=== PATIENT | male | born 1955 | race Caucasian/White ===

== ENCOUNTER 2016-11-25 10:19 | Emergency (ER) | payer OTHER ==
--- NOTE | 2016-11-25 10:39 | PDOC ---
History of Present Illness - General Chief Complaint: Redness To Affected Area Stated Complaint: LEFT HAND REDNESS Time Seen by Provider: 11/25/16 10:30 History Source: Patient, Old Records Exam Limitations: No Limitations - History of Present Illness Initial Comments: 11/25/16 10:49 61-year-old male with history of atrial fibrillation, hypothyroid disease and BPH who presents the emergency department with three-day history of painful lesions to his left upper extremity extending into his hand. The patient attributes these symptoms to a splinter that he got into his hand on Sunday. He denies fevers chills. All other review of systems are negative. The patient states that the lesions started out as red patchy areas then they get blisterlike lesions in clusters. Past History - Past Medical History Allergies/Adverse Reactions: Allergies Allergy/AdvReac Type Severity Reaction Status Date / Time No Known Allergies Allergy Verified 10/18/15 21:33 Home Medications: Ambulatory Orders Dofetilide [Tikosyn] 0.5 mcg PO DAILY #60 capsule 07/23/14 Cholecalciferol (Vitamin D3) [Vitamin D3 -] 2,000 unit PO BID 11/25/16 Gemfibrozil 1,200 mg PO DAILY 11/25/16 Magnesium 250 mg PO BID 11/25/16 Oxycodone HCl/Acetaminophen [Percocet 5-325 mg Tablet] 1 tab PO Q4H #15 tablet MDD 4 11/25/16 Terbinafine HCl [Lamisil] 250 mg PO DAILY 11/25/16 Valacyclovir HCl [Valtrex] 1,000 mg PO TID #21 tablet 11/25/16 Anemia: No Asthma: No Cancer: No Cardiac Disorders: Yes (A-FIB) CVA: No COPD: No CHF: No Dementia: No Diabetes: No GI Disorders: No Disorders: Yes (BPH) HTN: No Hypercholesterolemia: Yes Liver Disease: No Seizures: No Thyroid Disease: Yes (HYPOTHYROID) - Surgical History Abdominal Surgery: Yes (RIGHT INGUINAL HERNIA) Appendectomy: No Cardiac Surgery: Yes (CARDIAC ABLATION 01/08/15) Cholecystectomy: No Lung Surgery: No Neurologic Surgery: No Orthopedic Surgery: Yes (RIGHT ANKLE SURGERY) - Psycho/Social/Smoking Cessation Hx Anxiety: No Suicidal Ideation: No Smoking Status: No Smoking History: Never smoked Have you smoked in the past 12 months: No Number of Cigarettes Smoked Daily: 0 Hx Alcohol Use: Yes (RARE) Drug/Substance Use Hx: No Substance Use Type: None Hx Substance Use Treatment: No Review of Systems - Review of Systems Able to Perform ROS?: Yes Is the patient limited Luxembourgish proficient: No Constitutional: No: Symptoms Reported HEENTM: No: Symptoms Reported Respiratory: No: Symptoms reported, Hemoptysis ABD/GI: No: Symptoms Reported : No: Symptoms Reported Musculoskeletal: Yes: See HPI Integumentary: Yes: See HPI *Physical Exam - Physical Exam Comments: 11/25/16 10:50 GENERAL: Well developed, well nourished. Awake and alert. No acute distress. HEENT: Normocephalic, atraumatic. PERRLA, EOMI. No conjunctival pallor. Sclera are non- icteric. Moist mucous membranes. Oropharynx is clear. NECK: Supple. Full ROM. No JVD. No lymphadenopathy. CARDIOVASCULAR: Regular rate and rhythm. No murmurs, rubs, or gallops. Distal pulses are 2+ and symmetric. PULMONARY: No evidence of respiratory distress. Lungs clear to auscultation bilaterally. No wheezing, rales or rhonchi. ABDOMINAL: Soft. Non-tender. Non-distended. No rebound or guarding. No organomegaly. Normoactive bowel sounds. MUSCULOSKELETAL Normal range of motion at all joints. No bony deformities or tenderness. No CVA tenderness. EXTREMITIES: No cyanosis. No clubbing. No edema. No calf tenderness. SKIN: There are clusters of vesicles with an erythematous base on the midline of the chest and extending down the lateral aspect of the LUE and into the hand. The lesions do not cross midlin and are not on his back. NEUROLOGICAL: Alert, awake, appropriate. Cranial nerves 2-12 intact. Grossly non-focal exam. PSYCHIATRIC: Cooperative. Good eye contact. Appropriate mood and affect. Medical Decision Making - Medical Decision Making 11/25/16 10:51 61-year-old male with history of atrial fibrillation, hypothyroid disease and BPH who presents the emergency department with shingles to the left upper extremity. Plan: 1. I will start on antiviral medications valacyclovir 1000 mg 3 times a day for 7 days 2. Percocet for pain 3. Follow-up with primary care physician this weekDr. Outten who I have spoken to regarding this patient 4. Return to the emergency department if symptoms persist, worsen, or new symptoms arise. *DC/Admit/Observation/Transfer Diagnosis at time of Disposition: Shingles - Discharge Dispostion Disposition: HOME Condition at time of disposition: Stable Admit: No - Prescriptions Prescriptions: Oxycodone HCl/Acetaminophen [Percocet 5-325 mg Tablet] 1 tab PO Q4H #15 tablet MDD 4 Valacyclovir HCl [Valtrex] 1,000 mg PO TID #21 tablet - Patient Instructions Printed Discharge Instructions: DI for Shingles Additional Instructions: You are being treated for shingles which is a reactivation of the chickenpox virus. You're being given information on shingles as part of your discharge instructions. You're being treated with valacyclovir air which is an antiviral medication. The dosage of valacyclovir is a 1000 mgtake 1 tablet 3 times per day for one week. You also been prescribed Percocet which is a narcotic pain medication. You may take 1-2 tablets every 4-6 hours as needed for pain. Please follow-up with your primary care physician this week and return to the emergency department if your symptoms persist, worsen, or new symptoms arise.
[2016-11-25 10:46] VITALS: BP 124/80; PULSE 68; TEMP 98.2; BMI 30.4
== END 2016-11-25 11:02 | disposition home or self-care (01) ==
LOC: FER 10:19
DX: B02.9 Zoster without complications (principal); E03.9 Hypothyroidism, unspecified; N40.0 Benign prostatic hyperplasia without lower urinary tract symptoms; I48.91 Unspecified atrial fibrillation; E78.00 Pure hypercholesterolemia, unspecified
CPT/HCPCS: 99281-25

== ENCOUNTER 2017-12-24 09:38 | Day surgery (SDC) | payer OTHER ==
[2017-12-14 13:58] VITALS: BMI 31.4
[2017-12-24 10:14] VITALS: TEMP 98.2
[2017-12-24] MEDS ORDERED: PROPOFOL 20 ML ONE (10:22)
[2017-12-24] MEDS ORDERED: LIDOCAINE HCL/PF 2% SDV 5ML VIAL ONE (10:22)
[2017-12-24 12:28] VITALS: PULSE 55
[2017-12-24 12:55] VITALS: BP 135/80
--- NOTE | 2017-12-27 16:38 | PATH ---
Surgical Pathology Report Patient Name: JESI CARL [facility]. Rec. #: [id number] /Age/Gender: 1955 (Age: 62) / M Account: [id number] Location: [place] Pathology Taken: 12/24/2017 Received: 12/24/2017 Reported: 12/27/2017 Physicians: Loyd Fofana M.D. Specimen(s) Received A: DUODENUM B: ANTRUM C: POLYP FUNDUS D: LOWER ESOPHAGUS Clinical History GERD Postoperative diagnosis: Rule out celiac disease, gastric polyp, rule out Shah's esophagus, gastritis Final Diagnosis A. DUODENUM, BIOPSY: DUODENAL MUCOSA WITH NO PATHOLOGIC FINDINGS. Note: Features suggestive of celiac disease are not identified in this biopsy. B. ANTRUM, BIOPSY: MILD CHRONIC GASTRITIS. IMMUNOSTAIN IS NEGATIVE FOR H. PYLORI ORGANISMS. C. FUNDUS, POLYP, BIOPSY: GASTRIC XANTHOMA. IMMUNOSTAIN IS NEGATIVE FOR H. PYLORI ORGANISMS. D. LOWER ESOPHAGUS, BIOPSY: ESOPHAGOGASTRIC JUNCTIONAL (SQUAMOCOLUMNAR) AND COLUMNAR (GASTRIC CARDIA-TYPE) MUCOSA SHOWING INTESTINAL METAPLASIA, CONSISTENT WITH SHAH'S ESOPHAGUS IN THE APPROPRIATE ENDOSCOPIC SETTING; NEGATIVE FOR DYSPLASIA. SEVERE ACUTE AND CHRONIC ESOPHAGITIS; NUMEROUS FUNGAL ORGANISMS COMPATIBLE WITH SHARRON SPECIES ARE IDENTIFIED. Electronically Signed Carole Whalen M.D. Gross Description A. Received in formalin, labeled "duodenum" are 2 alfonso, irregular portions of soft tissue measuring 0.2 cm. in greatest dimension. The specimens are submitted in toto in one cassette. B. Received in formalin, labeled "antrum" are 2 alfonso, irregular portions of soft tissue measuring 0.2 and 0.4 cm. in greatest dimension. The specimens are submitted in toto in one cassette. C. Received in formalin, labeled "fundic polyp" is a alfonso, irregular portion of soft tissue measuring 0.3 cm. in greatest dimension. The specimen is submitted in toto in one cassette. D. Received in formalin, labeled "lower esophagus" are multiple alfonso, irregular portions of soft tissue ranging from 0.1-0.3 cm. in greatest dimension with an aggregate of 0.7 x 0.5 x 0.2 cm. The specimens are submitted in toto in one cassette. MLSZ/12/24/2017 sanml/12/24/2017
== END 2017-12-24 12:55 | disposition home or self-care (01) ==
LOC: FASU-ENDO 09:38
PROVIDERS: ATTEND Internal Medicine Gastroenterology
PROC: 0DB38ZX Excision of Lower Esophagus, Via Natural or Artificial Opening Endoscopic, Diagnostic (ICD-10-PCS; 2017-12-24)
PROC: 0DB98ZX Excision of Duodenum, Via Natural or Artificial Opening Endoscopic, Diagnostic (ICD-10-PCS; principal; 2017-12-24 11:51)
PROC: 0DB68ZX Excision of Stomach, Via Natural or Artificial Opening Endoscopic, Diagnostic (ICD-10-PCS; 2017-12-24 11:51)
DX: K31.7 Polyp of stomach and duodenum (principal); K29.50 Unspecified chronic gastritis without bleeding; K31.89 Other diseases of stomach and duodenum; R12 Heartburn; K22.70 Barrett's esophagus without dysplasia
CPT/HCPCS: 88305-TC; 88342-TC

== ENCOUNTER 2018-09-07 10:11 | Observation (INO) | payer OTHER ==
--- NOTE | 2018-09-07 10:51 | PDOC ---
History of Present Illness - General Chief Complaint: Syncope/Near Syncope Stated Complaint: SYNCOPE Time Seen by Provider: 09/07/18 10:19 History Source: Patient Exam Limitations: No Limitations - History of Present Illness Initial Comments: 09/07/18 10:51 63y hx of afib (sp ablation, currently not on any antiplatelets or a/c), hypothryroidism, bph, presents with syncope. Pt notes that he was in his usual state of health until this morning when he felt very lightheaded/dizzy when he stood up from working on his car, spun around a few times, remebers trying to grab the truck to prevent falling,but fell. He does not recall hitting the ground. Pt lincoln any associated cp, neck pain, back pain, abd pain, numbness/ tingling/weakness,headache, nv. Pt lincoln any fever/chills, recent cough, diarrhea, melena, bpr, cp, sob, gabriel. Pt does note he hasnt been feelnig well for a long period of time(several years ) but nothng specific. PMD:Dr Singh Card: [facility] Past History - Past Medical History Allergies/Adverse Reactions: Allergies Allergy/AdvReac Type Severity Reaction Status Date / Time No Known Allergies Allergy Verified 09/07/18 10:13 Home Medications: Ambulatory Orders Cholecalciferol (Vitamin D3) [Vitamin D3 -] 5,000 unit PO HS 11/25/16 Gemfibrozil 600 mg PO BID 11/25/16 Magnesium 250 mg PO BID 11/25/16 Dofetilide [Tikosyn] 500 mcg PO BID capsule 12/01/16 Ascorbic Acid [Vitamin C] 1,000 mg PO BID 12/14/17 Cyanocobalamin [Vitamin B12 -] 1,000 mcg PO DAILY 12/14/17 Pantoprazole Sodium 40 mg PO BID 12/14/17 Finasteride 5 mg PO HS 12/24/17 Paroxetine HCl 5 mg PO DAILY 09/07/18 Anemia: No Asthma: No Cancer: No Cardiac Disorders: Yes (A-FIB) CVA: No COPD: No CHF: No Dementia: No Diabetes: No GI Disorders: No Disorders: Yes (BPH) HTN: No Hypercholesterolemia: No Liver Disease: No Seizures: No Thyroid Disease: Yes (HYPOTHYROID) - Surgical History Abdominal Surgery: Yes (RIGHT INGUINAL HERNIA) Appendectomy: No Cardiac Surgery: Yes (CARDIAC ABLATION 01/08/15) Cholecystectomy: No Lung Surgery: No Neurologic Surgery: No Orthopedic Surgery: Yes (RIGHT ANKLE SURGERY) - Suicide/Smoking/Psychosocial Hx Smoking Status: No Smoking History: Never smoked Have you smoked in the past 12 months: No Number of Cigarettes Smoked Daily: 0 Information on smoking cessation initiated: No Hx Alcohol Use: Yes (RARE) Drug/Substance Use Hx: No Substance Use Type: Alcohol Hx Substance Use Treatment: No Review of Systems - Review of Systems Able to Perform ROS?: Yes Comments:: 09/07/18 11:03 Constitutional - +syncope no reported Fever, Chills, HEENT: no reported vision changes, sore throat Respiratory: no reported cough, sob, hemoptysis Cardiac: + light headedness, no reported chest pain, palpitations, leg swelling Abd/GI: no reported abd pain, nausea, vomiting, blood per rectum, melena, diarrhea : no reported dysuria, frequency, discharge Musculskelatal - no reported back pain, joint swelling skin - no reported bruising, erythema, rash neurological: +vertigo no reported headache, numbness, focal weakness, tingling , ataxia, hematologic: no reported easy bruising, easy bleeding *Physical Exam - Vital Signs Last Vital Signs Temp Pulse Resp BP Pulse Ox 98.5 F 58 L 20 147/95 98 09/07/18 10:12 09/07/18 10:12 09/07/18 10:12 09/07/18 10:12 09/07/18 10:12 - Physical Exam Comments: 09/07/18 11:04 GENERAL: The patient is awake, alert, and fully oriented, Nontoxic - in no acute distress. HEAD: Normocephalic, atraumatic. EYES: extraocular movements intact, sclera anicteric, conjunctiva clear, + persitnt nystagmus ENT: Normal voice, Moist mucous membranes. NECK: Normal range of motion, supple LUNGS: Breath sounds equal, clear to auscultation bilaterally. No wheezes, no rhonchi, no rales. HEART: Regular rate and rhythm, normal S1 and S2 without murmur, rub or gallop. ABDOMEN: Soft, nontender, No guarding, no rebound. . No CVA tenderness EXTREMITIES: Normal range of motion, no edema. No cords, erythema, or tenderness. NEUROLOGICAL: No facial assymetry, Normal speech, rapid alternating movements intact, non ataxic gait, normal finger to nose, sterngth 5/5 in upper/lower extermities, senation intact and symmetric throughout, neg romberg PSYCH: Normal mood, normal affect. SKIN: Warm, Dry, normal turgor, Heart Score/ECG Review - ECG Impressions Comment:: 09/07/18 11:05 Twelve-lead EKG was performed and reviewed by me. There is normal sinus rhythm rate of 52 left axis abnormal r wave progression 1st degree av block ED Treatment Course - LABORATORY CBC & Chemistry Diagram: 09/07/18 11:21 09/07/18 11:21 Medical Decision Making - Medical Decision Making 09/07/18 11:05 63y M presenting with feeling dizzy after standing, with persistent dizziness/ generalized weakness without haedache, neck pain, cp, gabriel. neuro exam intact, but pt does have nystagmus ddx - bppv, orthostatic hypotension, tia/cva, anemia, metabolic derangement, occult infection will ck labs, ct head, ua, cxr, ekg pt placed on cardiac montiiro will give melizine, fluids will reasesss 09/07/18 12:49 09/07/18 14:20 labs reviewed, ct head neg pts vertigo feeling improved will admit pt for tele obs for further evaluation of syncope Case discussed in detail with admitting physician including history, physical exam and ancillary studies. Admitting physician has assumed care for the patient, will follow all pending diagnostics and will complete the evaluation and treatment. *DC/Admit/Observation/Transfer Diagnosis at time of Disposition: Vertigo Syncope Qualifiers: Syncope type: unspecified Qualified Code(s): R55 - Syncope and collapse - Discharge Dispostion Condition at time of disposition: Stable Decision to Admit order: Yes - Referrals - Patient Instructions - Post Discharge Activity
[2018-09-07] MEDS ORDERED: SODIUM CHLORIDE 500 ML IV STA (10:53)
[2018-09-07] MEDS ORDERED: MECLIZINE HCL 25 MG TABLET (FP) PO ONE (11:06)
[2018-09-07] MEDS ORDERED: MECLIZINE HCL 25 MG TABLET (FP) ONE (11:22)
[2018-09-07 11:40] LABS: BASO % 0.6 % (0-2.0); EOS % 2.7 % (0-4.5); HEMATOCRIT 44.7 % (35.4-49); HEMOGLOBIN 14.9 GM/dl (11.7-16.9); LYMPH % 29.7 % (8-40); MCHC 33.2 g/dl (32.0-35.9); MEAN CELL VOLUME 96.2 fl (80-96); MEAN PLT VOLUME 8.5 fl (7.5-11.1); MONO % 10.8 % (3.8-10.2); NEUT % 56.2 % (42.8-82.8); PLATELET COUNT 148 K/MM3 (134-434); RBC 4.65 M/mm3 (4.00-5.60); RDW 13.5 % (11.9-15.9); WHITE BLOOD COUNT 3.7 K/mm3 (4.0-10.8)
[2018-09-07 11:45] LABS: INR 1.16 (0.82-1.09); PROTHROMBIN TIME (PATIENT) 12.9 SEC (10.2-13.0)
[2018-09-07 12:23] LABS: ALBUMIN 4.2 g/dl (3.4-5.0); BILIRUBIN,TOTAL 1.2 mg/dL (0.2-1); BLOOD UREA NITROGEN 14.9 mg/dL (7-18); CALCIUM 8.6 mg/dL (8.5-10.1); MAGNESIUM 2.4 mg/dL (1.8-2.4); POTASSIUM 4.3 mmol/L (3.5-5.1)
--- NOTE | 2018-09-07 15:07 | HP ---
CHIEF COMPLAINT:Syncope PCP:Dr. Springer HISTORY OF PRESENT ILLNESS: 63y hx of afib (sp ablation, currently not on any antiplatelets or a/c), hypothyroidism, BPH, MONICA presents with syncope. pt reports working on his truck , got up and felt everything spinning, went to grab side of truck and fell. came out and found pt on floor. pt reports being on coumadin for many years and then switched to xarelto which he was on for 3 yrs, stopped in 2018 as per Cardio, did not need it anymore. See [employer] Dr. Schmidt in [facility] and Dr. Roldan [employer] in [place], last Echo in 2018, pt give Meclizine in ED, pt states he feels so much better after taking it, Denies chills, fever, cough, +SOB on exertion, ER course was notable for: (1)afebrile (2)CT head unremarkable (3) Recent Travel: PAST MEDICAL HISTORY:afib (sp ablation, currently not on any antiplatelets or a/ c), hypothryroidism, BPH PAST SURGICAL HISTORY:Lipoma removal Social History: Smoking:Denies Alcohol:denies Drugs: denies Family History: Allergies No Known Allergies Allergy (Verified 09/07/18 10:13) HOME MEDICATIONS: Home Medications Medication Instructions Recorded Cholecalciferol (Vitamin D3) 5,000 unit PO HS 11/25/16 [Vitamin D3 -] Gemfibrozil 600 mg PO BID 11/25/16 Magnesium 250 mg PO BID 11/25/16 Dofetilide [Tikosyn] 500 mcg PO BID capsule 12/01/16 Ascorbic Acid [Vitamin C] 1,000 mg PO BID 12/14/17 Cyanocobalamin [Vitamin B12 -] 1,000 mcg PO DAILY 12/14/17 Pantoprazole Sodium 40 mg PO BID 12/14/17 Finasteride 5 mg PO HS 12/24/17 Paroxetine HCl 5 mg PO DAILY 09/07/18 REVIEW OF SYSTEMS CONSTITUTIONAL: Absent: fever, chills, diaphoresis, generalized weakness, malaise, loss of appetite, weight change HEENT: Absent: rhinorrhea, nasal congestion, throat pain, throat swelling, difficulty swallowing, mouth swelling, ear pain, eye pain, visual changes CARDIOVASCULAR: Absent: chest pain, syncope, palpitations, irregular heart rate, lightheadedness , peripheral edema RESPIRATORY: +SOB on exertion Absent: cough, orthopnea, wheezing, stridor, hemoptysis GASTROINTESTINAL: Absent: abdominal pain, abdominal distension, nausea, vomiting, diarrhea, constipation, melena, hematochezia GENITOURINARY: Absent: dysuria, frequency, urgency, hesitancy, hematuria, flank pain, genital pain MUSCULOSKELETAL: Absent: myalgia, arthralgia, joint swelling, back pain, neck pain SKIN: Absent: rash, itching, pallor HEMATOLOGIC/IMMUNOLOGIC: Absent: easy bleeding, easy bruising, lymphadenopathy, frequent infections ENDOCRINE: Absent: unexplained weight gain, unexplained weight loss, heat intolerance, cold intolerance NEUROLOGIC: +dizziness Absent: headache, focal weakness or paresthesias, unsteady gait, seizure, mental status changes, bladder or bowel incontinence PSYCHIATRIC: Absent: anxiety, depression, suicidal or homicidal ideation, hallucinations. PHYSICAL EXAMINATION Vital Signs - 24 hr 09/07/18 10:12 Temperature 98.5 F Pulse Rate 58 L Respiratory 20 Rate Blood Pressure 147/95 O2 Sat by Pulse 98 Oximetry (%) GENERAL: Awake, alert, and fully oriented, in no acute distress. HEAD: Normal with no signs of trauma. EYES: Pupils equal, round and reactive to light, extraocular movements intact, sclera anicteric, conjunctiva clear. No lid lag. EARS, NOSE, THROAT: Ears normal, nares patent, oropharynx clear without exudates. Moist mucous membranes. NECK: Normal range of motion, supple without lymphadenopathy, JVD, or masses. LUNGS: Breath sounds equal, clear to auscultation bilaterally. No wheezes, and no crackles. No accessory muscle use. HEART: Regular rate and rhythm, normal S1 and S2 without murmur, rub or gallop. ABDOMEN: Soft, nontender, not distended, normoactive bowel sounds, no guarding, no rebound, no masses. No hepatomegaly or splenomegaly. MUSCULOSKELETAL: Normal range of motion at all joints. No bony deformities or tenderness. No CVA tenderness. UPPER EXTREMITIES: 2+ pulses, warm, well-perfused. No cyanosis. No clubbing. No peripheral edema. LOWER EXTREMITIES: 2+ pulses, warm, well-perfused. No calf tenderness. No peripheral edema. NEUROLOGICAL: Cranial nerves II-XII intact. Normal speech. Normal gait. PSYCHIATRIC: Cooperative. Good eye contact. Appropriate mood and affect. SKIN: Warm, dry, normal turgor, no rashes or lesions noted, normal capillary refill. Laboratory Results - last 24 hr 09/07/18 09/07/18 09/07/18 11:21 11:21 11:21 WBC 3.7 L RBC 4.65 Hgb 14.9 Hct 44.7 MCV 96.2 H MCH 32.0 MCHC 33.2 RDW 13.5 Plt Count 148 MPV 8.5 Absolute Neuts (auto) 2.1 Neutrophils % 56.2 Lymphocytes % 29.7 D Monocytes % 10.8 H Eosinophils % 2.7 Basophils % 0.6 PT with INR INR Sodium 138 Potassium 4.3 Chloride 105 Carbon Dioxide 27 Anion Gap 7 L BUN 14.9 Creatinine 1.0 Est GFR (CKD-EPI)AfAm 91.13 Est GFR (CKD-EPI)NonAf 78.63 Random Glucose 93 Calcium 8.6 Magnesium 2.4 Total Bilirubin 1.2 H AST 13 L ALT 23 Alkaline Phosphatase 93 Creatine Kinase 39 Troponin I < 0.03 Total Protein 7.0 Albumin 4.2 TSH 3.94 H D Urine Color Urine Appearance Urine pH Urine Protein Urine Glucose (UA) Urine Ketones Urine Blood Urine Nitrite Urine Bilirubin Urine Urobilinogen Ur Leukocyte Esterase 09/07/18 09/07/18 11:21 13:27 WBC RBC Hgb Hct MCV MCH MCHC RDW Plt Count MPV Absolute Neuts (auto) Neutrophils % Lymphocytes % Monocytes % Eosinophils % Basophils % PT with INR 12.9 INR 1.16 Sodium Potassium Chloride Carbon Dioxide Anion Gap BUN Creatinine Est GFR (CKD-EPI)AfAm Est GFR (CKD-EPI)NonAf Random Glucose Calcium Magnesium Total Bilirubin AST ALT Alkaline Phosphatase Creatine Kinase Troponin I Total Protein Albumin TSH Urine Color Carole Urine Appearance Clear Urine pH 7.0 Urine Protein Negative Urine Glucose (UA) Negative Urine Ketones Negative Urine Blood Negative Urine Nitrite Negative Urine Bilirubin Negative Urine Urobilinogen 0.2 Ur Leukocyte Esterase Negative ASSESSMENT/PLAN: Akbar Dumont is a 63 yr old M, medical condition afib, s/p ablation not on AC , BPH, hypothyroidism, admitted under observation for Admitting Diagnosis Syncope Chronic Problems Afib (s/p ablation) BPH Hypothyroidism A/P: #Syncope #Vertigo -tele obs -IVF -CT head unremarkable -first trop neg -Carotid doppler ordered -Echo -UA neg -cardi consult -meclizine PRN #SOB on exertion #MONICA -echo ordered -o2 PRN -chest xray no acute findings #Afib s/p ablation -on Tikosyn -EKG sinus sony #BPH -on proscar #Hypothyroidism -TSH 3.94 -c/w synthroid 125mcg Full Code Dispo: requires inpatient treatment Visit type - Emergency Visit Emergency Visit: Yes Care time: The patient presented to the Emergency Department on the above date and was hospitalized for further evaluation of their emergent condition. - New Patient This patient is new to me today: Yes Date on this admission: 09/07/18 - Critical Care Critical Care patient: No
[2018-09-07] MEDS ORDERED: MECLIZINE HCL 25 MG TABLET (FP) PO PRN (16:02)
--- NOTE | 2018-09-07 16:57 | EKG ---
Test Reason : Blood Pressure : / mmHG Vent. Rate : 052 BPM Atrial Rate : 052 BPM P-R Int : 212 ms QRS Dur : 106 ms QT Int : 452 ms P-R-T Axes : -04 -73 032 degrees QTc Int : 420 ms SINUS BRADYCARDIA WITH 1ST DEGREE A-V BLOCK LEFT AXIS DEVIATION INFERIOR INFARCT , AGE UNDETERMINED ABNORMAL ECG NO PREVIOUS ECGS AVAILABLE Confirmed by MARLO VIRAMONTES MD ([id number]) on 09/07/2018 4:57:00 PM Referred By: GINA Confirmed By:MARLO VIRAMONTES MD
--- NOTE | 2018-09-07 16:58 | CON.CARD ---
Consult Consult Specialty:: Cardiology - History of Present Illness Chief Complaint: syncope History of Present Illness: 63y hx of afib (sp ablation, currently not on any antiplatelets or a/c), hypothryroidism, bph, presents with syncope. Pt notes that he was in his usual state of health until this morning when he felt very lightheaded/dizzy when he stood up from working on his car, spun around a few times, remebers trying to grab the truck to prevent falling,but fell. He does not recall hitting the ground. Pt lincoln any associated cp, neck pain, back pain, abd pain, numbness/ tingling/weakness,headache, nv. Pt lincoln any fever/chills, recent cough, diarrhea, melena, bpr, cp, sob, gabriel. Pt does note he hasnt been feelnig well for a long period of time(several years ) but nothng specific. PMD:Dr Singh Card: [facility] - History Source History Provided By: Patient, Medical Record - Past Medical History Cardio/Vascular: Yes: AFIB, Hyperlipdemia Endocrine: Yes: Hypothyroidism - Alcohol/Substance Use Hx Alcohol Use: Yes (RARE) - Smoking History Smoking history: Never smoked Have you smoked in the past 12 months: No Aproximately how many cigarettes per day: 0 Home Medications - Allergies Allergies/Adverse Reactions: Allergies Allergy/AdvReac Type Severity Reaction Status Date / Time No Known Allergies Allergy Verified 09/07/18 10:13 - Home Medications Home Medications: Ambulatory Orders Cholecalciferol (Vitamin D3) [Vitamin D3 -] 5,000 unit PO HS 11/25/16 Gemfibrozil 600 mg PO BID 11/25/16 Magnesium 250 mg PO BID 11/25/16 Dofetilide [Tikosyn] 500 mcg PO BID capsule 12/01/16 Ascorbic Acid [Vitamin C] 1,000 mg PO BID 12/14/17 Cyanocobalamin [Vitamin B12 -] 1,000 mcg PO DAILY 12/14/17 Pantoprazole Sodium 40 mg PO BID 12/14/17 Finasteride 5 mg PO HS 12/24/17 Paroxetine HCl 5 mg PO DAILY 09/07/18 Review of Systems - Review of Systems Constitutional: reports: No Symptoms Eyes: reports: No Symptoms HENT: reports: No Symptoms Neck: reports: No Symptoms Cardiovascular: reports: No Symptoms Respiratory: reports: No Symptoms Gastrointestinal: reports: No Symptoms Genitourinary: reports: No Symptoms Breasts: reports: No Symptoms Reported Musculoskeletal: reports: No Symptoms Integumentary: reports: No Symptoms Neurological: reports: Syncope Endocrine: reports: No Symptoms Hematology/Lymphatic: reports: No Symptoms Psychiatric: reports: No Symptoms Vital Signs: Vital Signs Temperature 98.8 F 09/07/18 14:57 Pulse Rate 60 09/07/18 14:57 Respiratory Rate 20 09/07/18 10:12 Blood Pressure 130/79 09/07/18 14:57 O2 Sat by Pulse Oximetry (%) 98 09/07/18 14:57 Constitutional: Yes: Well Nourished, No Distress, Calm Eyes: Yes: WNL, Conjunctiva Clear, EOM Intact HENT: Yes: WNL, Atraumatic, Normocephalic Neck: Yes: WNL, Supple, Trachea Midline Respiratory: Yes: WNL, Regular, CTA Bilaterally Gastrointestinal: Yes: WNL, Normal Bowel Sounds Renal/: Yes: WNL Cardiovascular: Yes: WNL, Regular Rate and Rhythm Musculoskeletal: Yes: WNL Extremities: Yes: WNL Integumentary: Yes: WNL Neurological: Yes: WNL, Alert, Oriented ...Motor Strength: WNL Psychiatric: Yes: WNL, Alert, Oriented - Other Data Labs, Other Data: CBC, BMP 09/07/18 11:21 09/07/18 11:21 INR, PTT INR 1.16 (0.82-1.09) 09/07/18 11:21 Troponin, BNP 09/07/18 11:21 Troponin I < 0.03 Troponin, BNP 09/07/18 11:21 Troponin I < 0.03 Imaging - Results Chest X-ray: Image Reviewed (no i/e) EKG: Image Reviewed (s sony 1 st degree avb old iwmi) Assessment/Plan syncope, afib (sp ablation, currently not on any antiplatelets or a/c), hypothryroidism, bph, presents with syncope. Pt notes that he was in his usual state of health until this morning when he felt very lightheaded/dizzy when he stood up from working on his car, spun around a few times, remebers trying to grab the truck to prevent falling,but fell. Plan telemetry echo c. duplex neuro eval
[2018-09-07 17:03] VITALS: BMI 31.7
[2018-09-07] MEDS: GEMFIBROZIL 600 MG TABLET (FP) PO SCH (18:18)
[2018-09-07] MEDS: ASCORBIC ACID 500 MG TABLET (FP) PO SCH (21:17)
[2018-09-07] MEDS: MAGNESIUM OXIDE 400 MG TABLET (FP) PO SCH (21:18)
[2018-09-07] MEDS: FINASTERIDE 5 MG TABLET (FP) PO SCH (21:18)
[2018-09-07] MEDS: HEPARIN NA (PORCINE) 5,000 UNITS/ML 1ML VIAL SQ SCH (21:18)
[2018-09-07] MEDS ORDERED: DOFETILIDE 0.5 MG CAPSULE PO SCH (22:00)
[2018-09-07] MEDS: PANTOPRAZOLE 40 MG TABLET (FP) PO SCH (22:01)
[2018-09-08] MEDS: GEMFIBROZIL 600 MG TABLET (FP) PO SCH ×2 (06:01→16:33)
[2018-09-08] MEDS: LEVOTHYROXINE NA 125 MCG TABLET (FP) PO SCH (06:01)
--- NOTE | 2018-09-08 08:33 | PN ---
Physical Exam: SUBJECTIVE: Patient seen and examined. Pt reports dizziness resolved,denies cp, sob, palpitations, abdominal pain, N/V /D or urinary symptoms. OBJECTIVE: Vital Signs Period Temp Pulse Resp BP Sys/Damian Pulse Ox Last 24 Hr 98.5 F-98.9 F 49-83 17-20 108-161/56-95 98-100 GENERAL: The patient is awake, alert, and fully oriented, in no acute distress. HEAD: Normal with no signs of trauma. EYES: PERRL, extraocular movements intact, sclera anicteric, conjunctiva clear. No ptosis. ENT: Ears normal, nares patent, oropharynx clear without exudates, moist mucous membranes. NECK: Trachea midline, full range of motion, supple. LUNGS: Breath sounds equal, clear to auscultation bilaterally, no wheezes, no crackles, no accessory muscle use. HEART: Regular rate and rhythm, S1, S2 without murmur, rub or gallop. ABDOMEN: Soft, nontender, nondistended, normoactive bowel sounds, no guarding, no rebound, no hepatosplenomegaly, no masses. EXTREMITIES: 2+ pulses, warm, well-perfused, no edema. NEUROLOGICAL: Cranial nerves II through XII grossly intact. Normal speech, gait not observed. PSYCH: Normal mood, normal affect. SKIN: Warm, dry, normal turgor, no rashes or lesions noted Laboratory Results - last 24 hr 09/07/18 09/07/18 09/07/18 11:21 11:21 11:21 WBC 3.7 L RBC 4.65 Hgb 14.9 Hct 44.7 MCV 96.2 H MCH 32.0 MCHC 33.2 RDW 13.5 Plt Count 148 MPV 8.5 Absolute Neuts (auto) 2.1 Neutrophils % 56.2 Lymphocytes % 29.7 D Monocytes % 10.8 H Eosinophils % 2.7 Basophils % 0.6 PT with INR INR Sodium 138 Potassium 4.3 Chloride 105 Carbon Dioxide 27 Anion Gap 7 L BUN 14.9 Creatinine 1.0 Est GFR (CKD-EPI)AfAm 91.13 Est GFR (CKD-EPI)NonAf 78.63 Random Glucose 93 Calcium 8.6 Magnesium 2.4 Total Bilirubin 1.2 H AST 13 L ALT 23 Alkaline Phosphatase 93 Creatine Kinase 39 Troponin I < 0.03 Total Protein 7.0 Albumin 4.2 TSH 3.94 H D Urine Color Urine Appearance Urine pH Urine Protein Urine Glucose (UA) Urine Ketones Urine Blood Urine Nitrite Urine Bilirubin Urine Urobilinogen Ur Leukocyte Esterase 09/07/18 09/07/18 11:21 13:27 WBC RBC Hgb Hct MCV MCH MCHC RDW Plt Count MPV Absolute Neuts (auto) Neutrophils % Lymphocytes % Monocytes % Eosinophils % Basophils % PT with INR 12.9 INR 1.16 Sodium Potassium Chloride Carbon Dioxide Anion Gap BUN Creatinine Est GFR (CKD-EPI)AfAm Est GFR (CKD-EPI)NonAf Random Glucose Calcium Magnesium Total Bilirubin AST ALT Alkaline Phosphatase Creatine Kinase Troponin I Total Protein Albumin TSH Urine Color Carole Urine Appearance Clear Urine pH 7.0 Urine Protein Negative Urine Glucose (UA) Negative Urine Ketones Negative Urine Blood Negative Urine Nitrite Negative Urine Bilirubin Negative Urine Urobilinogen 0.2 Ur Leukocyte Esterase Negative Active Medications Generic Name Dose Route Start Last Admin Trade Name Freq PRN Reason Stop Dose Admin Ascorbic Acid 1,000 mg 09/07/18 22:00 09/07/18 21:17 Vitamin C - PO 1,000 mg BID SWATI Administration Cyanocobalamin 1,000 mcg 09/08/18 10:00 Vitamin B12 - PO DAILY SWATI Dofetilide 0.5 mg 09/07/18 22:00 09/07/18 21:18 Tikosyn (Restricted To Cardiology) - PO 0.5 mg BID SWATI Administration Finasteride 5 mg 09/07/18 22:00 09/07/18 21:18 Proscar - PO 5 mg HS SWATI Administration Gemfibrozil 600 mg 09/07/18 16:30 09/08/18 06:01 Lopid - PO 600 mg BIDAC SWATI Administration Heparin Sodium (Porcine) 5,000 unit 09/07/18 22:00 09/07/18 21:18 Heparin - SQ 5,000 unit BID SWATI Administration Sodium Chloride 1,000 mls @ 75 mls/hr 09/07/18 15:00 Normal Saline - IV ASDIR SWATI Levothyroxine Sodium 125 mcg 09/08/18 07:00 09/08/18 06:01 Synthroid - PO 125 mcg AM SWATI Administration Magnesium Oxide 400 mg 09/07/18 22:00 09/07/18 21:18 Mag-Ox - PO 400 mg BID SWATI Administration Meclizine HCl 25 mg 09/07/18 16:02 Antivert - PO Q8H PRN VERTIGO Pantoprazole Sodium 40 mg 09/07/18 22:00 09/07/18 22:01 Protonix - PO 40 mg BID SWATI Administration Paroxetine HCl 5 mg 09/08/18 10:00 Paxil - PO DAILY SWATI * Imaging - CTHead : Chronic sinusitis, no acute intracranial pathology - CXR: No acute pathology ASSESSMENT/PLAN: 63y hx of afib (sp ablation, currently not on any antiplatelets or a/c), hypothryroidism, HDL, MONICA, anxiety and BPH, who presents with syncope. PMD Dr. Singh * Syncope, r/o neuro/ cardiac etiology VS BPPV - EKG: SB with 1st degree AV block, abnormal EKG - Tele monitoring -Trop neg -CT Head - no acute pathology - cardiology following - Echo ordered - carotid US pending - will check orthostatic vitals -Meclizine PRN * Hx of Afib (s/p ablation) - EKG - SB -will cont on home dose Tikosyn *BPH -on Proscar *Hypothyroidism -TSH 3.94 -c/w synthroid 125mcg - out pt f/u on TFT's * ANxiety - on Paxil * Hx of MONICA - asymptomatic - not on C-pap at home * HDL - will cont on Lopid *Full Code Dispo: Home when medically stable Visit type - Emergency Visit Emergency Visit: Yes ED Registration Date: 09/07/18 Care time: The patient presented to the Emergency Department on the above date and was hospitalized for further evaluation of their emergent condition. - New Patient This patient is new to me today: Yes Date on this admission: 09/08/18 - Critical Care Critical Care patient: No
[2018-09-08 08:37] LABS: HEMATOCRIT 44.2 % (35.4-49); HEMOGLOBIN 14.5 GM/dl (11.7-16.9); MCH 31.4 pg (25.7-33.7); MCHC 32.9 g/dl (32.0-35.9); MEAN CELL VOLUME 95.5 fl (80-96); MEAN PLT VOLUME 8.8 fl (7.5-11.1); PLATELET COUNT 128 K/MM3 (134-434); RBC 4.63 M/mm3 (4.00-5.60); RDW 13.1 % (11.9-15.9); WHITE BLOOD COUNT 3.5 K/mm3 (4.0-10.8)
--- NOTE | 2018-09-08 08:38 | PN ---
Progress Note, Physician History of Present Illness: 63y hx of afib (sp ablation, currently not on any antiplatelets or a/c), hypothryroidism, bph, presents with syncope. Pt notes that he was in his usual state of health until this morning when he felt very lightheaded/dizzy when he stood up from working on his car, spun around a few times, remebers trying to grab the truck to prevent falling,but fell. He does not recall hitting the ground. Pt lincoln any associated cp, neck pain, back pain, abd pain, numbness/ tingling/weakness,headache, nv. Pt l[place] any fever/chills, recent cough, diarrhea, melena, bpr, cp, sob, gabriel. Pt does note he hasnt been feelnig well for a long period of time(several years ) but nothng specific. PMD:Dr Singh Card: [facility] - Current Medication List Current Medications: Active Medications Ascorbic Acid (Vitamin C -) 1,000 mg PO BID [facility] Last Admin: 09/07/18 21:17 Dose: 1,000 mg Cyanocobalamin (Vitamin B12 -) 1,000 mcg PO DAILY [facility] Dofetilide (Tikosyn (Restricted To Cardiology) -) 0.5 mg PO BID [facility] Last Admin: 09/07/18 21:18 Dose: 0.5 mg Finasteride (Proscar -) 5 mg PO HS [facility] Last Admin: 09/07/18 21:18 Dose: 5 mg Gemfibrozil (Lopid -) 600 mg PO BIDAC [facility] Last Admin: 09/08/18 06:01 Dose: 600 mg Heparin Sodium (Porcine) (Heparin -) 5,000 unit SQ BID [facility] Last Admin: 09/07/18 21:18 Dose: 5,000 unit Sodium Chloride (Normal Saline -) 1,000 mls @ 75 mls/hr IV ASDIR [facility] Levothyroxine Sodium (Synthroid -) 125 mcg PO AM [facility] Last Admin: 09/08/18 06:01 Dose: 125 mcg Magnesium Oxide (Mag-Ox -) 400 mg PO BID [facility] Last Admin: 09/07/18 21:18 Dose: 400 mg Meclizine HCl (Antivert -) 25 mg PO Q8H PRN PRN Reason: VERTIGO Pantoprazole Sodium (Protonix -) 40 mg PO BID [facility] Last Admin: 09/07/18 22:01 Dose: 40 mg Paroxetine HCl (Paxil -) 5 mg PO DAILY [facility] - Objective Vital Signs: Vital Signs Temperature 98.9 F 09/08/18 06:28 Pulse Rate 58 L 09/08/18 06:28 Respiratory Rate 20 09/08/18 06:28 Blood Pressure 161/82 09/08/18 06:28 O2 Sat by Pulse Oximetry (%) 100 09/08/18 06:28 Eyes: Yes: WNL, Conjunctiva Clear, EOM Intact HENT: Yes: WNL, Atraumatic, Normocephalic Neck: Yes: WNL, Supple, Trachea Midline Cardiovascular: Yes: WNL, Regular Rate and Rhythm Respiratory: Yes: WNL, Regular, CTA Bilaterally Gastrointestinal: Yes: WNL, Normal Bowel Sounds Genitourinary: Yes: WNL Musculoskeletal: Yes: WNL Extremities: Yes: WNL Edema: No Integumentary: Yes: WNL Neurological: Yes: WNL, Alert, Oriented ...Motor Strength: WNL Psychiatric: Yes: WNL Labs: INR, PTT INR 1.16 (0.82-1.09) 09/07/18 11:21 Assessment/Plan syncope, afib (sp ablation, currently not on any antiplatelets or a/c), hypothryroidism, bph, presents with syncope. Pt notes that he was in his usual state of health until this morning when he felt very lightheaded/dizzy when he stood up from working on his car, spun around a few times, remebers trying to grab the truck to prevent falling,but fell. Plan telemetry echo c. duplex neuro eval
[2018-09-08] MEDS: PARoxetine HCL 10 MG TABLET PO SCH (09:18)
[2018-09-08] MEDS: MAGNESIUM OXIDE 400 MG TABLET (FP) PO SCH ×2 (09:18→21:37)
[2018-09-08] MEDS: HEPARIN NA (PORCINE) 5,000 UNITS/ML 1ML VIAL SQ SCH ×2 (09:18→21:38)
[2018-09-08] MEDS: CYANOCOBALAMIN 1,000 MCG TABLET (FP) PO SCH (09:19)
[2018-09-08] MEDS: PANTOPRAZOLE 40 MG TABLET (FP) PO SCH ×2 (09:19→21:38)
[2018-09-08] MEDS: ASCORBIC ACID 500 MG TABLET (FP) PO SCH ×2 (09:19→21:38)
[2018-09-08 10:08] LABS: ALBUMIN 3.9 g/dl (3.4-5.0); ALK PHOS 91 U/L (45-117); ANION GAP 10 MMOL/L (8-16); BILIRUBIN,TOTAL 0.9 mg/dL (0.2-1); BLOOD UREA NITROGEN 14.2 mg/dL (7-18); CALCIUM 8.4 mg/dL (8.5-10.1); CHLORIDE 105 mmol/L (98-107); CO2 23 mmol/L (21-32); GLUCOSE,RANDOM 86 mg/dL (74-106); MAGNESIUM 2.1 mg/dL (1.8-2.4); POTASSIUM 4.4 mmol/L (3.5-5.1); SGOT/AST 16 U/L (15-37); SGPT/ALT 22 U/L (13-61); SODIUM 138 mmol/L (136-145); TOT PROT 6.7 g/dl (6.4-8.2)
[2018-09-08] MEDS ORDERED: PT OWN MED DRAWER 7, Y5N ONE (12:21)
[2018-09-08] MEDS: DOFETILIDE 0.5 MG CAPSULE PO SCH ×2 (13:10→21:38)
[2018-09-08] MEDS: SODIUM CHLORIDE 1,000 ML IV SCH (16:33)
[2018-09-08] MEDS: FINASTERIDE 5 MG TABLET (FP) PO SCH (21:37)
[2018-09-09] MEDS ORDERED: PT OWN MED DRAWER 7, Y5N ONE ×4 (06:18→21:25)
[2018-09-09] MEDS: LEVOTHYROXINE NA 125 MCG TABLET (FP) PO SCH (07:08)
[2018-09-09] MEDS: GEMFIBROZIL 600 MG TABLET (FP) PO SCH ×2 (07:08→16:38)
--- NOTE | 2018-09-09 08:58 | PN ---
Progress Note, Physician History of Present Illness: 63y hx of afib (sp ablation, currently not on any antiplatelets or a/c), hypothryroidism, bph, presents with syncope. Pt notes that he was in his usual state of health until this morning when he felt very lightheaded/dizzy when he stood up from working on his car, spun around a few times, remebers trying to grab the truck to prevent falling,but fell. He does not recall hitting the ground. Pt l[place] any associated cp, neck pain, back pain, abd pain, numbness/ tingling/weakness,headache, nv. Pt l[place] any fever/chills, recent cough, diarrhea, melena, bpr, cp, sob, gabriel. Pt does note he hasnt been feelnig well for a long period of time(several years ) but nothng specific. PMD:Dr Singh Card: [facility] - Current Medication List Current Medications: Active Medications Ascorbic Acid (Vitamin C -) 1,000 mg PO BID [facility] Last Admin: 09/08/18 21:38 Dose: 1,000 mg Cyanocobalamin (Vitamin B12 -) 1,000 mcg PO DAILY [facility] Last Admin: 09/08/18 09:19 Dose: 1,000 mcg Dofetilide (Tikosyn (Restricted To Cardiology) -) 0.5 mg PO BID [facility] Last Admin: 09/08/18 21:38 Dose: 0.5 mg Finasteride (Proscar -) 5 mg PO HS [facility] Last Admin: 09/08/18 21:37 Dose: 5 mg Gemfibrozil (Lopid -) 600 mg PO BIDAC [facility] Last Admin: 09/09/18 07:08 Dose: 600 mg Heparin Sodium (Porcine) (Heparin -) 5,000 unit SQ BID [facility] Last Admin: 09/08/18 21:38 Dose: 5,000 unit Sodium Chloride (Normal Saline -) 1,000 mls @ 75 mls/hr IV ASDIR [facility] Last Admin: 09/08/18 16:33 Dose: 75 mls/hr Levothyroxine Sodium (Synthroid -) 125 mcg PO AM [facility] Last Admin: 09/09/18 07:08 Dose: 125 mcg Magnesium Oxide (Mag-Ox -) 400 mg PO BID [facility] Last Admin: 09/08/18 21:37 Dose: 400 mg Meclizine HCl (Antivert -) 25 mg PO Q8H PRN PRN Reason: VERTIGO Pantoprazole Sodium (Protonix -) 40 mg PO BID [facility] Last Admin: 09/08/18 21:38 Dose: 40 mg Paroxetine HCl (Paxil -) 5 mg PO DAILY [facility] Last Admin: 09/08/18 09:18 Dose: 5 mg - Objective Vital Signs: Vital Signs Temperature 98.7 F 09/09/18 06:34 Pulse Rate 70 09/09/18 06:34 Respiratory Rate 16 09/09/18 08:24 Blood Pressure 144/79 09/09/18 06:34 O2 Sat by Pulse Oximetry (%) 98 09/09/18 08:24 Eyes: Yes: WNL, Conjunctiva Clear, EOM Intact HENT: Yes: WNL, Atraumatic, Normocephalic Neck: Yes: WNL, Supple, Trachea Midline Cardiovascular: Yes: Pulse Irregular, S1, S2 Respiratory: Yes: WNL, Regular, CTA Bilaterally Gastrointestinal: Yes: WNL, Normal Bowel Sounds Genitourinary: Yes: WNL Musculoskeletal: Yes: WNL Extremities: Yes: WNL Edema: No Integumentary: Yes: WNL Neurological: Yes: WNL, Alert, Oriented ...Motor Strength: WNL Psychiatric: Yes: WNL Labs: CBC, BMP 09/08/18 08:00 09/08/18 08:00 INR, PTT INR 1.16 (0.82-1.09) 09/07/18 11:21 Assessment/Plan syncope, afib (sp ablation, currently not on any antiplatelets or a/c), hypothryroidism, bph, presents with syncope. Pt notes that he was in his usual state of health until this morning when he felt very lightheaded/dizzy when he stood up from working on his car, spun around a few times, remebers trying to grab the truck to prevent falling,but fell. telemetry - ?AF vpcs couplets echo pending c. duplex normal neuro eval 12 leads ekg if AF confirmed would recommend restarting Xarelto will f/u
[2018-09-09] MEDS: HEPARIN NA (PORCINE) 5,000 UNITS/ML 1ML VIAL SQ SCH ×2 (10:08→21:23)
[2018-09-09] MEDS: MAGNESIUM OXIDE 400 MG TABLET (FP) PO SCH ×2 (10:09→21:23)
[2018-09-09] MEDS: ASCORBIC ACID 500 MG TABLET (FP) PO SCH ×2 (10:09→21:23)
[2018-09-09] MEDS: PARoxetine HCL 10 MG TABLET PO SCH (10:09)
[2018-09-09] MEDS: CYANOCOBALAMIN 1,000 MCG TABLET (FP) PO SCH (10:09)
[2018-09-09] MEDS: DOFETILIDE 0.5 MG CAPSULE PO SCH ×2 (10:10→21:23)
[2018-09-09] MEDS: PANTOPRAZOLE 40 MG TABLET (FP) PO SCH ×2 (10:10→21:23)
--- NOTE | 2018-09-09 11:52 | PN ---
Physical Exam: SUBJECTIVE: Patient seen and examined at bedside. Dizziness resolved in ED after meclizine dose. No further incidents. No palpitations, SOB, chest pain. OBJECTIVE: Vital Signs Period Temp Pulse Resp BP Sys/Damian Pulse Ox Last 24 Hr 98.2 F-98.7 F 53-82 16-20 117-152/53-96 96-100 GENERAL: The patient is awake, alert, and fully oriented, in no acute distress. LUNGS: Breath sounds equal, clear to auscultation bilaterally, no wheezes, no crackles, no accessory muscle use. HEART: Irregular rhythm, S1, S2 ABDOMEN: Soft, nontender, nondistended EXTREMITIES: 2+ pulses, warm, well-perfused, no edema. NEUROLOGICAL: Cranial nerves II through XII grossly intact. Normal speech, gait not observed. Active Medications Generic Name Dose Route Start Last Admin Trade Name Freq PRN Reason Stop Dose Admin Ascorbic Acid 1,000 mg 09/07/18 22:00 09/09/18 10:09 Vitamin C - PO 1,000 mg BID SWATI Administration Cyanocobalamin 1,000 mcg 09/08/18 10:00 09/09/18 10:09 Vitamin B12 - PO 1,000 mcg DAILY SWATI Administration Dofetilide 0.5 mg 09/08/18 13:00 09/09/18 10:10 Tikosyn (Restricted To Cardiology) - PO 0.5 mg BID SWATI Administration Finasteride 5 mg 09/07/18 22:00 09/08/18 21:37 Proscar - PO 5 mg HS SWATI Administration Gemfibrozil 600 mg 09/07/18 16:30 09/09/18 07:08 Lopid - PO 600 mg BIDAC SWATI Administration Heparin Sodium (Porcine) 5,000 unit 09/07/18 22:00 09/09/18 10:08 Heparin - SQ 5,000 unit BID SWATI Administration Sodium Chloride 1,000 mls @ 75 mls/hr 09/07/18 15:00 09/08/18 16:33 Normal Saline - IV 75 mls/hr ASDIR SWATI Administration Levothyroxine Sodium 125 mcg 09/08/18 07:00 09/09/18 07:08 Synthroid - PO 125 mcg AM SWATI Administration Magnesium Oxide 400 mg 09/07/18 22:00 09/09/18 10:09 Mag-Ox - PO 400 mg BID SWATI Administration Meclizine HCl 25 mg 09/07/18 16:02 Antivert - PO Q8H PRN VERTIGO Pantoprazole Sodium 40 mg 09/07/18 22:00 09/09/18 10:10 Protonix - PO 40 mg BID SWATI Administration Paroxetine HCl 5 mg 09/08/18 10:00 09/09/18 10:09 Paxil - PO 5 mg DAILY SWATI Administration ASSESSMENT/PLAN 63 year-old male with a PMH significant for HLD, cardiomyopathy, afib s/p ablation x 2, GERD, BPH, and hypothyroidism. Placed on observation following episode of dizziness. Dizziness Near syncope --troponins negative x 2 --CXR unremarkable --serial ECGs no evidence of acute ischemic event --US carotids: unremarkable --CT head: no acute process --meclizine PRN --mildly orthostatic: continue gentle IV fluids --neuro consult pending h/o Atrial fibrillation s/p ablation x 2 (2013, 2014) --serial ECGs and telemetry show sinus rhythm with PVCs --has not been on rate-controlling medication "for years" --Xarelto was stopped in 2017, on no a/c since then --continue dofetilide/Tikosyn --follows regularly with Dr. Schmidt at [facility] and Dr. Roldan in [place] --continue telemetry monitoring --seen and evaluated by cardiology Cardiomyopathy --diagnosed years ago, not sure reason --09/09 Echo: mild cLVH, LV normal, EF 60-65%; RV normal; mild MR; mild AI; mild PI --continue daily Mg supplementation Hyperlipidemia --continue gemfibrozil GERD --continue protonix BPH --continue Proscar Hypothyroidism --continue levothyroxine FEN Fluids: NS@50mL/hr Electrolytes: replete as indicated Nutrition: regular diet DVT prophylaxis: subq heparin Dispo: continues to require observation. Full code. Visit type - Emergency Visit Emergency Visit: Yes ED Registration Date: 09/07/18 Care time: The patient presented to the Emergency Department on the above date and was hospitalized for further evaluation of their emergent condition. - New Patient This patient is new to me today: Yes Date on this admission: 09/09/18 - Critical Care Critical Care patient: No
--- NOTE | 2018-09-09 15:27 | ECHO ---
Version: 1 Name: JESI CARL Exam: Adult Echocardiogram Study Date: 09/09/2018, 2:06 PM Age: 63 Years MMode/2D Measurements & Calculations IVSd: 1.26 cm LVIDs: 3.3 cm LVIDd: 4.9 cm LVPWd: 1.28 cm LVOT diam: 2.00 cm Ao root diam: 3.7 cm LA dimension: 4.1 cm Doppler Measurements & Calculations MV E max hu: 101.7 cm/sec MV A max hu: 35.4 cm/sec MV E/A: 2.9 MR max P.8 mmHg Ao max P.8 mmHg Ao V2 max: 130.1 cm/sec PI end-d hu: 83.7 cm/sec TR max hu: 212.0 cm/sec TR max P.0 mmHg Procedure A limited two-dimensional transthoracic echocardiogram was performed (2D). Left Ventricle The left ventricle is normal in size. Left ventricular systolic function is normal. Ejection Fractio n = 60- 65%. No regional wall motion abnormalities noted. Right Ventricle The right ventricle is not well visualized. The right ventricular systolic function is normal. RV sy stolic TDI is 13 cm/s. Atria The left atrium is mildly dilated. Right atrial size is normal. Mitral Valve There is mild mitral annular calcification. There is trace mitral regurgitation. Tricuspid Valve The tricuspid valve is not well visualized, but is grossly normal. No tricuspid regurgitation. Aortic Valve There is moderate aortic sclerosis.;. Hemodynamically significant valvular aortic stenosis cannot be excluded. The calculated aortic valve area using the continuity equation is 1.0 cm2. Aortic mean pre ssure gradient= 11 mmHg. DI (Dimensionless Index) is 0.35. Mild aortic regurgitation. Pulmonic Valve The pulmonic valve is not well visualized. Great Vessels The aortic root is normal size. Pericardium/Pleura Small pericardial effusion (<1cm). There are no echocardiographic indications of cardiac tamponade. Summary Statements A limited two-dimensional transthoracic echocardiogram was performed (2D). The left ventricle is normal in size. Left ventricular systolic function is normal. No regional wall motion abnormalities noted. Ejection Fraction = 60-65%. The right ventricular systolic function is normal. The left atrium is mildly dilated. Right atrial size is normal. There is mild mitral annular calcification. There is trace mitral regurgitation. There is moderate aortic sclerosis.; Hemodynamically significant valvular aortic stenosis cannot be excluded. The calculated aortic valve area using the continuity equation is 1.0 cm2. Aortic mean pressure gradient= 11 mmHg DI (Dimensionless Index) is 0.35 Small pericardial effusion (<1cm) There are no echocardiographic indications of cardiac tamponade. Preet Romero MD 09/09/2018, 7:26 PM Ordering Physician: Tiffanie Bailey Performed By: Heather Hawk
[2018-09-09] MEDS ORDERED: SODIUM CHLORIDE 1,000 ML IV SCH (16:30)
[2018-09-09] MEDS: FINASTERIDE 5 MG TABLET (FP) PO SCH (21:23)
[2018-09-10] MEDS ORDERED: PT OWN MED DRAWER 7, Y5N ONE ×2 (06:29→09:09)
[2018-09-10] MEDS: LEVOTHYROXINE NA 125 MCG TABLET (FP) PO SCH (06:34)
[2018-09-10] MEDS: GEMFIBROZIL 600 MG TABLET (FP) PO SCH ×2 (06:36→16:15)
[2018-09-10] MEDS: SODIUM CHLORIDE 1,000 ML IV SCH ×2 (07:26→07:27)
[2018-09-10 09:26] LABS: BLOOD UREA NITROGEN 15.4 mg/dL (7-18); CALCIUM 9.3 mg/dL (8.5-10.1); MAGNESIUM 2.4 mg/dL (1.8-2.4); POTASSIUM 4.7 mmol/L (3.5-5.1)
[2018-09-10] MEDS: DOFETILIDE 0.5 MG CAPSULE PO SCH (09:31)
[2018-09-10] MEDS: HEPARIN NA (PORCINE) 5,000 UNITS/ML 1ML VIAL SQ SCH (09:31)
[2018-09-10] MEDS: PARoxetine HCL 10 MG TABLET PO SCH (09:32)
[2018-09-10] MEDS: PANTOPRAZOLE 40 MG TABLET (FP) PO SCH (09:32)
[2018-09-10] MEDS: MAGNESIUM OXIDE 400 MG TABLET (FP) PO SCH (09:32)
[2018-09-10] MEDS: ASCORBIC ACID 500 MG TABLET (FP) PO SCH (09:32)
[2018-09-10] MEDS: CYANOCOBALAMIN 1,000 MCG TABLET (FP) PO SCH (09:32)
[2018-09-10] MEDS ORDERED: ACETAMINOPHEN 325 MG TABLET (FP) PO PRN (10:43)
--- NOTE | 2018-09-10 11:18 | CON.NEURO ---
Consult - Past Medical History Cardio/Vascular: Yes: AFIB, Hyperlipdemia Endocrine: Yes: Hypothyroidism - Alcohol/Substance Use Hx Alcohol Use: Yes (RARE) - Smoking History Smoking history: Never smoked Have you smoked in the past 12 months: No Aproximately how many cigarettes per day: 0 Home Medications - Allergies Allergies/Adverse Reactions: Allergies Allergy/AdvReac Type Severity Reaction Status Date / Time No Known Allergies Allergy Verified 09/07/18 10:13 - Home Medications Home Medications: Ambulatory Orders Cholecalciferol (Vitamin D3) [Vitamin D3 -] 5,000 unit PO HS 11/25/16 Gemfibrozil 600 mg PO BID 11/25/16 Magnesium 250 mg PO BID 11/25/16 Dofetilide [Tikosyn] 500 mcg PO BID capsule 12/01/16 Ascorbic Acid [Vitamin C] 1,000 mg PO BID 12/14/17 Cyanocobalamin [Vitamin B12 -] 1,000 mcg PO DAILY 12/14/17 Pantoprazole Sodium 40 mg PO BID 12/14/17 Finasteride 5 mg PO HS 12/24/17 Paroxetine HCl 5 mg PO DAILY 09/07/18 Physical Exam-Neuro Vital Signs: Vital Signs Temperature 98 F 09/10/18 09:22 Pulse Rate 78 09/10/18 09:22 Respiratory Rate 18 09/10/18 09:22 Blood Pressure 138/78 09/10/18 09:22 O2 Sat by Pulse Oximetry (%) 99 09/10/18 09:22 Labs: CBC, BMP 09/08/18 08:00 09/10/18 07:21 INR, PTT INR 1.16 (0.82-1.09) 09/07/18 11:21 Assessment/Plan cc Syncopal episode HPI year old male history of Atrial fibrillation (s/p ablation), Hypothyroidism, BPH, MONICA. He was in his usual state of health and had episode of brief passing out. Before he pass out , he feel he is spinning. After episode was over , he did not move and he was not feeling any vertigo movement. Patient denies any headhace, dysphagia, dysarthria or diplopia, there is no motor weakness ro sensory loss He did have ct head and caoritd ultrasound is normal. He is feeling better but not back to [facility], he feel dizzy specially when hefets up and walk. He is complaining of localized left paraspinal pain in left side, no radicular symptoms. PAST MEDICAL HISTORY:afib (sp ablation, currently not on any antiplatelets or a/ c), hypothryroidism, BPH PAST SURGICAL HISTORY:Lipoma removal SH,FH,ROS reviwed in chart No Known Allergies Allergy (Verified 09/07/18 10:13) HOME MEDICATIONS: Home Medications Medication Instructions Recorded Cholecalciferol (Vitamin D3) 5,000 unit PO HS 11/25/16 [Vitamin D3 -] Gemfibrozil 600 mg PO BID 11/25/16 Magnesium 250 mg PO BID 11/25/16 Dofetilide [Tikosyn] 500 mcg PO BID capsule 12/01/16 Ascorbic Acid [Vitamin C] 1,000 mg PO BID 12/14/17 Cyanocobalamin [Vitamin B12 -] 1,000 mcg PO DAILY 12/14/17 Pantoprazole Sodium 40 mg PO BID 12/14/17 Finasteride 5 mg PO HS 12/24/17 Paroxetine HCl 5 mg PO DAILY 09/07/18 NEUROLOGICAL EAMINATION Alert oriented x 3, speech is normal, normotensive, afebrile, no neck stiffness eomi, pupils reactive, no face asymmetry Motor 5/5 all ext sensation is normal ct head is normal carotid ultrasound is normal Assessment/Plan Syncopal episode, history of Atrial fibrillation , hld, bph, monica and b12 deficiency. Patient is feeling better and neuro exam and ct head is normal, carotid ultrasound is normal. Clinically there is no evidence of stroke or seizure Plan: no further recommendation from neuro point of view Thanking you so much Eros Pierce MD
--- NOTE | 2018-09-10 11:41 | DS ---
Physical Exam: SUBJECTIVE: Patient seen and examined OBJECTIVE: Vital Signs Period Temp Pulse Resp BP Sys/Admian Pulse Ox Last 24 Hr 98 F-98.2 F 55-78 16-18 117-138/61-82 96-99 PHYSICAL EXAM GENERAL: The patient is awake, alert, and fully oriented, in no acute distress. HEAD: Normal with no signs of trauma. EYES: PERRL, extraocular movements intact, sclera anicteric, conjunctiva clear. ENT: Ears normal, nares patent, oropharynx clear without exudates, moist mucous membranes. NECK: Trachea midline, full range of motion, supple. LUNGS: Breath sounds equal, clear to auscultation bilaterally, no wheezes, no crackles, no accessory muscle use. HEART: Regular rate and rhythm, S1, S2 without murmur, rub or gallop. ABDOMEN: Soft, nontender, nondistended, normoactive bowel sounds, no guarding, no rebound, no hepatosplenomegaly, no masses. EXTREMITIES: 2+ pulses, warm, well-perfused, no edema. NEUROLOGICAL: Cranial nerves II through XII grossly intact. Normal speech, gait not observed. PSYCH: Normal mood, normal affect. SKIN: Warm, dry, normal turgor, no rashes or lesions noted. LABS Laboratory Results - last 24 hr 09/10/18 07:21 Sodium 136 Potassium 4.7 Chloride 102 Carbon Dioxide 28 Anion Gap 6 L BUN 15.4 Creatinine 1.0 Est GFR (CKD-EPI)AfAm 91.13 Est GFR (CKD-EPI)NonAf 78.63 Random Glucose 96 Calcium 9.3 Magnesium 2.4 HOSPITAL COURSE: Date of Admission:09/07/18 Date of Discharge: 09/10/18 Discharge Summary Reason For Visit: SYNCOPE Current Active Problems Syncope (Acute) Vertigo (Acute) Condition: Stable - Instructions - Home Medications Comprehensive Discharge Medication List: Ambulatory Orders Cholecalciferol (Vitamin D3) [Vitamin D3 -] 5,000 unit PO HS 11/25/16 Gemfibrozil 600 mg PO BID 11/25/16 Magnesium 250 mg PO BID 11/25/16 Dofetilide [Tikosyn] 500 mcg PO BID capsule 12/01/16 Ascorbic Acid [Vitamin C] 1,000 mg PO BID 12/14/17 Cyanocobalamin [Vitamin B12 -] 1,000 mcg PO DAILY 12/14/17 Pantoprazole Sodium 40 mg PO BID 12/14/17 Finasteride 5 mg PO HS 12/24/17 Paroxetine HCl 5 mg PO DAILY 09/07/18
--- NOTE | 2018-09-10 12:51 | EKG ---
Test Reason : Blood Pressure : / mmHG Vent. Rate : 063 BPM Atrial Rate : 063 BPM P-R Int : 208 ms QRS Dur : 106 ms QT Int : 430 ms P-R-T Axes : 006 -78 047 degrees QTc Int : 440 ms SINUS RHYTHM WITH FREQUENT PREMATURE VENTRICULAR COMPLEXES LEFT AXIS DEVIATION INFERIOR INFARCT (CITED ON OR BEFORE 07-SEP-2018) POSSIBLE ANTEROLATERAL INFARCT , AGE UNDETERMINED ABNORMAL ECG Confirmed by Claude Chisholm MD ([id number]) on 09/10/2018 12:50:36 PM Referred By: KT Confirmed By:Claude Chisholm MD
[2018-09-10 14:18] VITALS: BP 114/52; PULSE 54; TEMP 98.5
--- NOTE | 2018-09-10 15:25 | EKG ---
Test Reason : Blood Pressure : / mmHG Vent. Rate : 064 BPM Atrial Rate : 064 BPM P-R Int : 228 ms QRS Dur : 106 ms QT Int : 410 ms P-R-T Axes : 007 -79 056 degrees QTc Int : 422 ms SINUS RHYTHM WITH 1ST DEGREE A-V BLOCK WITH OCCASIONAL PREMATURE VENTRICULAR COMPLEXES LEFT AXIS DEVIATION INCOMPLETE RIGHT BUNDLE BRANCH BLOCK POSSIBLE LATERAL INFARCT (CITED ON OR BEFORE 09-SEP-2018) INFERIOR INFARCT (CITED ON OR BEFORE 07-SEP-2018) ABNORMAL ECG WHEN COMPARED WITH ECG OF 09-SEP-2018 14:44, NO SIGNIFICANT CHANGE WAS FOUND Confirmed by MD Pedro Pablo, Sheldon ([id number]) on 09/10/2018 3:25:22 PM Referred By: KT Confirmed By:Sheldon Chamorro MD
== END 2018-09-10 17:05 | disposition home or self-care (01) ==
LOC: FER 10:11 → FM/S 15:01
PROVIDERS: ATTEND Nurse Practitioner Acute Care
PROC: 3E023GC Introduction of Other Therapeutic Substance into Muscle, Percutaneous Approach (ICD-10-PCS; principal; 2018-09-07)
DX: R55 Syncope and collapse (principal); R42 Dizziness and giddiness; Z86.79 Personal history of other diseases of the circulatory system; I42.9 Cardiomyopathy, unspecified; E03.9 Hypothyroidism, unspecified; E78.5 Hyperlipidemia, unspecified; N40.0 Benign prostatic hyperplasia without lower urinary tract symptoms; E53.8 Deficiency of other specified B group vitamins; G47.33 Obstructive sleep apnea (adult) (pediatric); F41.9 Anxiety disorder, unspecified; R94.31 Abnormal electrocardiogram [ECG] [EKG]; I25.2 Old myocardial infarction
CPT/HCPCS: 36415; 70450-TC; 71046-TC-FY; 80048; 80053; 81003; 82550; 83735; 84443; 84484; 85025; 85027; 85610; 93005; 93306-TC; 93880-TC; 99284-25; G0378; J1644; J7030

== ENCOUNTER 2019-04-01 11:22 | Emergency (ER) | payer OTHER ==
[2019-04-01 11:37] VITALS: BP 121/85; PULSE 63; TEMP 98.5; BMI 30.8
--- NOTE | 2019-04-01 12:02 | PDOC ---
History of Present Illness - General Chief Complaint: Injury Stated Complaint: RIGHT HAND INJURY Time Seen by Provider: 04/01/19 11:40 - History of Present Illness Initial Comments: 04/01/19 16:24 Chief complaint: Pain right thumb HPI: Fell approximately 1 week ago, injuring her right thumb. Persistent pain and swelling. Review of systems: Denies distal numbness or tingling. Denies any other injuries including pain or injury to the wrist, forearm, elbow, upper arm, or shoulder. Denies head or neck, chest or abdominal injury Past medical history: Reviewed and noncontributory Social/family history also reviewed and noncontributory Physical exam: Alert and oriented well-developed well-nourished no acute distress cheerful and cooperative Afebrile, vital signs stable Right hand: There is swelling and tenderness over the first metacarpal phalangeal joint. There is no deformity. There is stress tenderness of the UCL. There is ecchymosis present at the base of the thumb, extending to the radial aspect of the wrist. Mild snuffbox tenderness. No significant wrist pain or deformity. Capillary refill intact. No distal sensory deficits. No swelling or tenderness over the forearm elbow or upper arm. There appear to be full extension of the distal phalanx against resistance and no mallet finger deformity. Impression: Rule out fracture, probable UCL injury Plan: X-ray is negative. The MCP joint shows no fracture. X-ray of the wrist shows no scaphoid fracture or other bone abnormality. This is probably an acute sprain of the UCL, uncertain if it is torn. Thumb spica applied until further examination and evaluation by hand specialist. Referred to Dr. Branch, and the patient agrees to follow-up as directed within 1 week.. 04/01/19 16:30 Past History - Past Medical History Allergies/Adverse Reactions: Allergies Allergy/AdvReac Type Severity Reaction Status Date / Time No Known Allergies Allergy Verified 04/01/19 11:24 Home Medications: Ambulatory Orders Cholecalciferol (Vitamin D3) [Vitamin D3 -] 5,000 unit PO HS 11/25/16 Gemfibrozil 600 mg PO BID 11/25/16 Magnesium 250 mg PO BID 11/25/16 Dofetilide [Tikosyn] 500 mcg PO BID capsule 12/01/16 Ascorbic Acid [Vitamin C] 1,000 mg PO BID 12/14/17 Cyanocobalamin [Vitamin B12 -] 1,000 mcg PO DAILY 12/14/17 Finasteride 5 mg PO HS 12/24/17 Famotidine [Pepcid] 20 mg PO BID 04/01/19 Anemia: No Asthma: No Cancer: No Cardiac Disorders: Yes (A-FIB) CVA: No COPD: No CHF: No Dementia: No Diabetes: No GI Disorders: No Disorders: Yes (BPH) HTN: No Hypercholesterolemia: No Liver Disease: No Seizures: No Thyroid Disease: Yes (HYPOTHYROID) - Surgical History Abdominal Surgery: Yes (RIGHT INGUINAL HERNIA) Appendectomy: No Cardiac Surgery: Yes (CARDIAC ABLATION 01/08/15) Cholecystectomy: No Lung Surgery: No Neurologic Surgery: No Orthopedic Surgery: Yes (RIGHT ANKLE SURGERY) - Psycho Social/Smoking Cessation Hx Smoking Status: No Smoking History: Never smoked Have you smoked in the past 12 months: No Number of Cigarettes Smoked Daily: 0 Information on smoking cessation initiated: No Hx Alcohol Use: No Drug/Substance Use Hx: No Substance Use Type: Alcohol Hx Substance Use Treatment: No *Physical Exam - Vital Signs Last Vital Signs Temp Pulse Resp BP Pulse Ox 98.5 F 63 16 121/85 99 04/01/19 11:23 04/01/19 11:23 04/01/19 11:23 04/01/19 11:23 04/01/19 11:23 Medical Decision Making - Medical Decision Making 04/01/19 16:29 X-ray reviewed: No fracture noted Procedure note: Application of thumb spica Thumb spica for immobilization was applied in the position of function. The patient was much more comfortable after immobilization. There was no distal numbness tingling pain or weakness, good fingertip motion documented. Referral to hand specialist. Discharge - Discharge Information Problems reviewed: Yes Clinical Impression/Diagnosis: Ulnar collateral ligament sprain Qualifiers: Encounter type: initial encounter Laterality: right Qualified Code(s): S53.441A - Ulnar collateral ligament sprain of right elbow, initial encounter Condition: Improved Disposition: HOME - Admission No - Follow up/Referral Referrals: Tre Branch MD [Staff Physician] - 1 week - Patient Discharge Instructions Patient Printed Discharge Instructions: Ulnar Collateral Ligament Sprain of Thumb Additional Instructions: There is no fracture detected. However, you may have a serious injury of an important ligament in your thumb. If this is not treated adequately, there could be significant future disability. Maintain the splint and recheck with hand specialist in 1 week. At that time, the swelling and pain should be improved, and a more thorough examination of the ligament may be performed. Continue Aleve for pain and swelling. Splint and sling for immobilization and elevation until further evaluation. - Post Discharge Activity
== END 2019-04-01 13:06 | disposition home or self-care (01) ==
LOC: FER 11:22
PROC: 2W3GX1Z Immobilization of Right Thumb using Splint (ICD-10-PCS; principal; 2019-04-01)
DX: S53.441A Ulnar collateral ligament sprain of right elbow, initial encounter (principal); W18.39XA Other fall on same level, initial encounter; Y93.89 Activity, other specified; Y92.89 Other specified places as the place of occurrence of the external cause; I48.91 Unspecified atrial fibrillation; N40.0 Benign prostatic hyperplasia without lower urinary tract symptoms; E03.9 Hypothyroidism, unspecified
CPT/HCPCS: 73110-TC-RT-FY; 73140-TC-RT-FY; 99281-25

== ENCOUNTER 2020-10-04 08:55 | Emergency (ER) | payer OTHER ==
[2020-10-04] MEDS ORDERED: ACETAMINOPHEN 325 MG TABLET (FP) PO ONE (09:10)
[2020-10-04 09:12] VITALS: TEMP 99; BMI 30.8
[2020-10-04] MEDS ORDERED: ACETAMINOPHEN 325 MG TABLET (FP) ONE (09:40)
[2020-10-04 09:47] LABS: HEMOGLOBIN 14.7 GM/dl (11.7-16.9); MEAN CELL VOLUME 96.7 fl (80-96)
[2020-10-04 09:52] LABS: BASO % 0.8 % (0-2.0); EOS % 2.9 % (0-4.5); HEMATOCRIT 42.7 % (35.4-49); LYMPH % 23.6 % (8-40); MCH 33.3 pg (25.7-33.7); MCHC 34.5 g/dl (32.0-35.9); MEAN PLT VOLUME 8.3 fl (7.5-11.1); MONO % 10.6 % (3.8-10.2); NEUT % 62.1 % (42.8-82.8); PLATELET COUNT 128 10^3/uL (134-434); RBC 4.41 M/mm3 (4.00-5.60); RDW 12.9 % (11.9-15.9); WHITE BLOOD COUNT 4.2 K/mm3 (4.0-10.8)
[2020-10-04 09:56] LABS: ACTIVATED PTT 41.1 SECONDS (25.2-36.5)
[2020-10-04 10:01] LABS: INR 1.63 (0.82-1.09); PROTHROMBIN TIME (PATIENT) 17.7 SEC (10.2-13.0)
[2020-10-04 10:12] LABS: ALBUMIN 4.2 g/dl (3.4-5.0); BILIRUBIN,TOTAL 1.2 mg/dl (0.2-1); CALCIUM 8.6 mg/dl (8.5-10); CREATININE 0.8 mg/dl (0.55-1.3); TOT PROT 6.8 g/dl (6.4-8.2)
[2020-10-04 12:20] VITALS: BP 132/101; PULSE 75
== END 2020-10-04 12:20 | disposition home or self-care (01) ==
LOC: FER 08:55
DX: S40.022A Contusion of left upper arm, initial encounter (principal); I83.93 Asymptomatic varicose veins of bilateral lower extremities; Y99.8 Other external cause status
CPT/HCPCS: 36415; 76882-TC-RT-FY; 80053; 85025; 85610; 85730; 99284-25

== ENCOUNTER 2021-04-04 09:00 | Day surgery (SDC) | payer OTHER ==
[2021-03-30 13:57] VITALS: BMI 31.6
[2021-04-04 14:58] VITALS: TEMP 98
[2021-04-04 15:19] VITALS: BP 128/84; PULSE 65
== END 2021-04-04 12:50 | disposition home or self-care (01) ==
LOC: FASU-ENDO 09:00
PROVIDERS: ATTEND Internal Medicine Gastroenterology
PROC: 0DJD8ZZ Inspection of Lower Intestinal Tract, Via Natural or Artificial Opening Endoscopic (ICD-10-PCS; principal; 2021-04-04 09:55)
DX: Z86.010 Personal history of colon polyps (principal); Z80.0 Family history of malignant neoplasm of digestive organs

== ENCOUNTER 2021-07-02 08:56 | Emergency (ER) | payer OTHER ==
[2021-07-02 09:16] VITALS: BP 122/71; PULSE 51; TEMP 98.5; BMI 31.4
== END 2021-07-02 09:46 | disposition home or self-care (01) ==
LOC: FER 08:56
DX: I83.892 Varicose veins of left lower extremity with other complications (principal)
CPT/HCPCS: 99282-25

== ENCOUNTER 2022-04-03 22:50 | Emergency (ER) | payer OTHER ==
[2022-04-03 22:55] VITALS: BP 00/0; PULSE 0; RESP 0; BMI 34.0
[2022-04-03 23:31] LABS: INR 1.3 (0.83-1.09)
[2022-04-03 23:33] LABS: ACTIVATED PTT 41.1 SECONDS (25.2-36.5)
[2022-04-03 23:37] LABS: HEMATOCRIT 46.5 % (35.4-49); HEMOGLOBIN 14.7 GM/dL (11.7-16.9); MCH 31.6 pg (25.7-33.7); MCHC 31.7 g/dl (32.0-35.9); MEAN PLT VOLUME 8.6 fl (7.5-11.1); PLATELET COUNT 101 10^3/uL (134-434); RBC 4.65 M/mm3 (4.00-5.60); RDW 14.5 % (11.9-15.9); WHITE BLOOD COUNT 8.8 K/mm3 (4.0-10.0)
[2022-04-03 23:43] LABS: CALCIUM 10.5 mg/dL (8.5-10.1)
[2022-04-03 23:44] LABS: ALBUMIN 3.2 g/dl (3.4-5.0); MAGNESIUM 2.6 mg/dL (1.8-2.4)
[2022-04-03 23:46] LABS: CREATININE 1.3 mg/dL (0.55-1.3)
[2022-04-03 23:48] LABS: BILIRUBIN,TOTAL 0.8 mg/dL (0.2-1)
[2022-04-03 23:51] LABS: LACTIC ACID 14.5 mmol/L (0.4-2.0)
== END 2022-04-03 23:08 | disposition expired ==
LOC: JER 22:50
PROC: 5A12012 Performance of Cardiac Output, Single, Manual (ICD-10-PCS; principal; 2022-04-03)
DX: I46.9 Cardiac arrest, cause unspecified (principal)
CPT/HCPCS: 36415; 80053; 82550; 83605; 83735; 84484; 85027; 85379; 85610; 85730; 87040; 99283-25